=== PATIENT | female | born 1965 | race Caucasian/White ===

== ENCOUNTER → 2017-09-03 | Outpatient (CLI) | payer OTHER, BC ==
[2017-09-05 14:46] LABS: HPV Genotype 16 Not Detected (NOTDET); HPV Genotype 18 Not Detected (NOTDET)
[2017-09-11 09:31] LABS: HPV High Risk Other Not Detected (NOTDET)
== END | disposition home or self-care (01) ==
LOC: LAB SHORT 15:55 → OLS 15:55
PROVIDERS: Nurse Practitioner Women's Health
DX: Z12.4 Encounter for screening for malignant neoplasm of cervix (principal); Z91.89 Other specified personal risk factors, not elsewhere classified
CPT/HCPCS: 87624; G0123

== ENCOUNTER → 2018-09-10 | Outpatient (CLI) | payer OTHER, BC ==
[~2018-09-10] MED LIST: ESTRADIOL1 EAC1; GEMF600
[2018-09-13 15:06] LABS: HPV 16 Negative (Negative); HPV 18 Negative (Negative); HPV OTHER HR TYPES Negative (Negative)
== END | disposition home or self-care (01) ==
LOC: LAB 10:12 → LAB SHORT 10:12
PROVIDERS: Nurse Practitioner Women's Health
DX: Z12.4 Encounter for screening for malignant neoplasm of cervix (principal); Z91.89 Other specified personal risk factors, not elsewhere classified
CPT/HCPCS: 87624; G0123

== ENCOUNTER 2025-05-12 10:02 | Day surgery (SDC) | payer OTHER ==
[~2025-05-12] VITALS: Ht 162.6 cm; Wt 69.0 kg
[~2025-05-12 10:02] MED LIST changes: +Bupivacaine 0.5% W/EPI 1:200000 SDV 30 ML Vial ONE
[2025-05-12] MEDS ORDERED: PROG100 (10:49)
[2025-05-12] MEDS ORDERED: ERGO400 (10:49)
[2025-05-12] MEDS ORDERED: ATOR10 (10:50)
[2025-05-12] MEDS ORDERED: MULVITA (10:50)
[2025-05-12] MEDS ORDERED: CeFAZolin Sodium 2,000 MG VIAL ONE (11:00)
[2025-05-12] MEDS ORDERED: FentaNYL Citrate 50 MCG/ML 2 ML Injection ONE (11:17)
[2025-05-12] MEDS ORDERED: Midazolam HCl 1MG / ML 2ML Vial ONE (11:18)
[2025-05-12] MEDS ORDERED: Ondansetron HCl 2 MG / ML 2ML Vial ONE (12:39)
[2025-05-12] MEDS ORDERED: Dexamethasone Sod Phos 10 MG/ML 1ML VIAL ONE (12:39)
[2025-05-12] MEDS ORDERED: Ketorolac Tromethamine 30mg Vial ONE (12:39)
--- NOTE | 2025-05-12 13:25 | NUR ---
05/12/25 [id number] BENJAMIN BROWN DENIES PAIN AND NAUSEA. WARM BLANKET PROVIDED
[2025-05-12 13:37] VITALS: BP 112/57
--- NOTE | 2025-05-12 13:45 | NUR ---
05/12/25 [id number] BENJAMIN BROWN PT IN SITTING BESIDE RECLINER. PT QUIET. SIPPING ON COUGHING. CONTINUES TO DENY PAIN AND NAUSEA
== END 2025-05-12 14:10 | disposition home or self-care (01) ==
LOC: ORSCSDS 10:02
PROVIDERS: Podiatrist Foot & Ankle Surgery
PROC: 0SGK04Z Fusion of Right Tarsometatarsal Joint with Internal Fixation Device, Open Approach (ICD-10-PCS; principal; 2025-05-12 11:30)
DX: M21.611 Bunion of right foot (principal); M25.374 Other instability, right foot; E78.5 Hyperlipidemia, unspecified; Z79.899 Other long term (current) drug therapy
CPT/HCPCS: A6253; C1713; J0690; J1100; J1885; J2250; J2405; J2704; J3010; J7120